=== PATIENT | male | born 1995 | race Caucasian/White ===

== ENCOUNTER 2018-05-15 10:11 | Emergency (ER) | payer SELFPAY ==
[2018-05-15 10:12] VITALS: BP 135/88; PULSE 107; RESP 17; TEMP 36.4; O2SAT 99; BMI 26.6
--- NOTE | 2018-05-15 10:22 | ED.DCSUM_ITS ---
- ER Visit Summary Date of Service: 05/15/18 Chief Complaint: Abdominal pain, nausea, vomiting History of Present Illness: The patient is a 22 M presents to the emergency department with abdominal pain nausea and vomiting. Patient symptoms began acutely at 330 this morning. He states he woke from sleep and had the urge to vomit. He states he vomited more than 10 times. There is been no blood in the emesis. He states that he has pain with vomiting, but no pain at rest. He denies any fevers or chills. He has no history of prior abdominal surgery. He has no history of inflammatory bowel disease. He denies any alcohol use. He denies any sick contacts. Physical Examination: Vital signs reviewed General: Well-nourished, well-developed Head: Normocephalic, atraumatic Eyes: Pupils equal and reactive, extraocular muscles intact Neck, supple, no lymphadenopathy Heart: Regular rate and rhythm Respiratory: No distress, clear bilaterally Abdomen: Soft, nontender, nondistended, no peritoneal signs Back: Nontender Extremities: Nontender, no edema, no cords Skin: Normal color no rash Neuro: Alert and oriented, no focal or lateralizing deficits Test Results: [] Emergency Department Course and Treatment: I cannot re-create any pain on the patient's examination. His abdomen is soft and nontender. He states that he did eat at a bar last night and then 6 hours later his vomiting started. IV was established. He was given fluids and antiemetics. He had marked improvement of symptoms. Lab work was obtained and was unremarkable. On reevaluation is resting comfortably. He is now tolerating oral liquids. I do feel that this is more likely an infectious gastroenteritis or even food poisoning. However, he is well-appearing, has a nontender abdomen, and is now tolerating p.o. I do feel that he is safe for outpatient therapy. The patient was counseled concerning symptoms and reasons to return. He will be discharged home. Treatment Plan: [] Disposition: Discharge Impression: 1. Nausea and vomiting This note was generated with [employer] software. It may contain incorrect words, spelling, and punctuation that were not noted in review of the chart prior to signing ED Disposition - Plan for ED Patient: Chief Complaint: Abd Pain Instructions: ED Nausea Vomiting Prescriptions: Ondansetron [Zofran Odt] 4 mg PO Q8H PRN PRN #10 tab PRN Reason: Nausea Referrals: NOT,DEFINED [NON-STAFF] -
[2018-05-15] MEDS: 0.9% Normal Saline 1,000 ML 1000 ML IV (10:35)
[2018-05-15] MEDS: Ondansetron 4 MG/2 ML Vial IV (10:36)
[2018-05-15] MEDS: Ketorolac 30 MG/ML Syringe IV (10:36)
[2018-05-15 10:54] LABS: ALB/GLOB Ratio 1.4 RATIO (0.9-2.4); AST(SGOT) 21 U/L (15-37); Alanine Aminotransfer ALT/SGPT 44 U/L (16-61); Albumin, Serum 4.9 g/dL (3.2-5.0); Alkaline Phosphatase 91 U/L (45-117); Anion Gap 8 (5-15); BUN 18 mg/dL (7-18); BUN/Creat Ratio 16.2 RATIO (10-20); Calcium,Total 9.7 mg/dL (8.5-10.1); Chloride 104 mmol/L (98-107); Creatinine, Serum 1.11 mg/dL (0.70-1.30); EST Glomerular Filtration Rate 89 mL/min (>60); Est Glom Filt Rate - Afr Amer 108 mL/min (>60); Estimated Creatinine Clearance 106.16 ml/min; Globulin 3.5 g/dL (2.2-4.2); Glucose 117 mg/dL (74-106); Lipase 136 U/L (73-393); Potassium 4.3 mmol/L (3.5-5.1); Protein, Total 8.4 g/dL (6.4-8.2); Sodium Level 138 mmol/L (136-145)
[2018-05-15 10:55] LABS: Absolute Lymphocyte Count 0.55 X10^3/ul (0.83-4.51); Absolute Neutrophil Count 10.6 X10^3/uL (2.0-7.7); Basophil# 0.01 X10^3/uL; Basophil% 0.1 % (0-1); Eosinophil# 0.02 X10^3/uL; Eosinophils% 0.2 % (0-5); Hematocrit 49.4 % (40-54); Hemoglobin 17.5 g/dl (13.0-16.5); Lymphocyte # 0.55 X10^3/ul (4.0); Lymphocyte % 4.5 % (19-41); Mean Corp Hgb Conc 35.4 g/gl (32-36); Mean Corpuscular Hgb 30.8 pg (27.0-32.0); Mean Platelet Vol. 11.3 fl (6.2-12.0); Monocyte% 8.2 % (0-10); Neutrophil % 86.7 % (47-70); Platelet Count 195 K/mm3 (150-450); RBC Distribution Width CV 12.3 % (11.6-14.6); RBC Distribution Width SD 39.5 fl (35.1-43.9); Red Blood Count 5.68 M/mm3 (4.6-6.2); White Blood Count 12.2 K/mm3 (4.4-11.0)
[2018-05-15 10:56] LABS: Differential Indicated SCAN CRITERIA MET; POSITIVE COUNT NO; POSITIVE DIFFERENTIAL YES; POSITIVE MORPHOLOGY NO
== END 2018-05-15 11:26 | disposition home or self-care (01) ==
LOC: ED 10:47
PROVIDERS: Emergency Provider Emergency Medicine
DX: R11.2 Nausea with vomiting, unspecified (principal); Z72.0 Tobacco use
CPT/HCPCS: 80053; 83690; 85025; 96361; 96374; 96375; 99283; J7030; A4216; J2405

== ENCOUNTER 2018-05-18 15:04 | Emergency (ER) | payer SELFPAY ==
[2018-05-18 15:05] VITALS: BP 121/73; PULSE 84; RESP 14; TEMP 36.9; O2SAT 97; BMI 28.7
--- NOTE | 2018-05-18 15:14 | CT_ITS ---
STUDY: CT ABDOMEN AND PELVIS WITH CONTRAST REASON FOR EXAM: Male, 22 years old. Epigastric pain nausea vomiting diarrhea RADIATION DOSAGE (If Supplied By Facility): CTDIvol = ( 15.57 ) mGy, DLP = ( 1068.20 ) mGycm TECHNIQUE: Transaxial images were obtained from the dome of the diaphragm to the symphysis pubis with oral contrast. 100ML ml of Isovue 300 contrast was administered. Sagittal and coronal images were reconstructed. Individualized dose optimization techniques were used for this CT. COMPARISON: None. FINDINGS: The visualized lung bases are unremarkable. The visualized portions of the heart are within normal limits. Normal liver. Normal gallbladder and extrahepatic biliary system. Normal spleen. Normal pancreas. Normal bilateral adrenal glands. Normal right kidney. Normal left kidney. Normal visualized stomach. Normal small intestine. Normal colon. The appendix is visualized and appears normal. Normal abdominal aorta. Normal inferior vena cava. Normal retroperitoneum. Normal urinary bladder. The prostate, seminal vesicles, and seminal vesicle angles appear within normal limits. There is a small umbilical hernia containing fat. Normal osseous structures. CT/Abdomen/Pelvis WITH Contrast IMPRESSION: Small fat-containing umbilical hernia. There is no evidence of free intra-abdominal or intrapelvic air, fluid, or inflammatory process. Electronically Signed: Jimmie Sprague MD at 17:27 EST , Service support ,
--- NOTE | 2018-05-18 15:19 | ED.VISSUMM ---
- ER Visit Summary Date of Service: 05/18/18 Chief Complaint: Abdominal pain History of Present Illness: The patient is a 22 M presenting with abdominal pain, nausea, vomiting. His symptoms started on 05/15. He was seen in the ED that day. He had blood work and was treated with fluids and medication. He felt improved and was discharged with Zofran. He states his symptoms have continued. He denies diarrhea. Denies blood in his emesis. He has had 2 episodes of vomiting today. He complains of epigastric pain. He does not believe this worsens with eating. He denies fever. Denies other complaints. Physical Examination: Vitals are stable. Patient is afebrile. Alert no acute distress. HEENT exam is unremarkable. Neck is supple. Lungs are clear and equal bilaterally. Heart is regular rate and rhythm. Abdomen is soft epigastric tenderness with no rebound or guarding Extremities are unremarkable. Skin is warm and dry. Remainder of exam is unremarkable. Emergency Department Course and Treatment: Patient is given IV fluids, Phenergan. CBC, chemistries unremarkable. Liver lipase are normal. CT abdomen pelvis shows small fat-containing umbilical hernia. There is no evidence of free intra-abdominal or intrapelvic air, fluid, or inflammatory process. On reevaluation, patient is resting comfortably. His abdomen is soft and nontender. He declines Phenergan prescription and will continue taking Zofran. He is advised to follow-up with primary care physician. Advised to return to ED for worsening complaints. Disposition: Discharge home Impression: Abdominal pain This note was generated with [employer] dictation software. It may contain incorrect words, spelling, and punctuation that were not noted in review of the chart prior to signing ED Disposition - Plan for ED Patient: Chief Complaint: Abd Pain Referrals: Care Physician,No Primary [Primary Care Provider] -
[2018-05-18] MEDS: proMETHazine 25 MG/ML Syringe 6.25 MG IV (15:25)
[2018-05-18] MEDS: 0.9% Normal Saline 1,000 ML 1000 ML IV (15:25)
[2018-05-18 15:40] LABS: Absolute Lymphocyte Count 0.96 X10^3/ul (0.83-4.51); Absolute Neutrophil Count 2.1 X10^3/uL (2.0-7.7); Basophil# 0.01 X10^3/uL; Basophil% 0.3 % (0-1); Eosinophil# 0.08 X10^3/uL; Eosinophils% 2.2 % (0-5); Hematocrit 47.6 % (40-54); Hemoglobin 16.4 g/dl (13.0-16.5); Lymphocyte # 0.96 X10^3/ul (4.0); Lymphocyte % 26.2 % (19-41); Mean Corp Hgb Conc 34.5 g/gl (32-36); Mean Corpuscular Hgb 30.1 pg (27.0-32.0); Mean Corpuscular Volume 87.5 fL (80-94); Mean Platelet Vol. 10.9 fl (6.2-12.0); Monocyte# 0.51 X10^3/uL; Monocyte% 13.9 % (0-10); Neutrophil # 2.09 X10^3/uL (2.7-7.7); Neutrophil % 57.1 % (47-70); Platelet Count 169 K/mm3 (150-450); RBC Distribution Width CV 12.1 % (11.6-14.6); RBC Distribution Width SD 38.2 fl (35.1-43.9); Red Blood Count 5.44 M/mm3 (4.6-6.2); White Blood Count 3.7 K/mm3 (4.4-11.0)
[2018-05-18 15:41] LABS: POSITIVE COUNT NO; POSITIVE DIFFERENTIAL NO; POSITIVE MORPHOLOGY NO
[2018-05-18 15:52] LABS: AST(SGOT) 37 U/L (15-37); Alanine Aminotransfer ALT/SGPT 51 U/L (16-61); Albumin, Serum 4.4 g/dL (3.2-5.0); Alkaline Phosphatase 74 U/L (45-117); Anion Gap 7 (5-15); BUN 13 mg/dL (7-18); BUN/Creat Ratio 12.9 RATIO (10-20); Calcium,Total 8.5 mg/dL (8.5-10.1); Chloride 104 mmol/L (98-107); Creatinine, Serum 1.01 mg/dL (0.70-1.30); EST Glomerular Filtration Rate 100 mL/min (>60); Est Glom Filt Rate - Afr Amer 121 mL/min (>60); Estimated Creatinine Clearance 116.67 ml/min; Globulin 3.1 g/dL (2.2-4.2); Glucose 80 mg/dL (74-106); Lipase 86 U/L (73-393); Potassium 4.3 mmol/L (3.5-5.1); Protein, Total 7.5 g/dL (6.4-8.2); Sodium Level 139 mmol/L (136-145)
[2018-05-18 17:04] VITALS: BP 119/64; PULSE 58; RESP 18; O2SAT 96
--- NOTE | 2018-05-18 18:24 | ED.DEP ---
ED Disposition - Plan for ED Patient: Chief Complaint: Abd Pain Instructions: ED Abdominal Pain Unkn Cause Referrals: Pk Carpenter MD [STAFF PHYSICIAN] -
[2018-05-18 18:32] VITALS: PULSE 59; RESP 18; O2SAT 100
== END 2018-05-18 18:33 | disposition home or self-care (01) ==
LOC: ED 15:45
PROVIDERS: Emergency Provider Emergency Medicine
DX: R10.13 Epigastric pain (principal); R11.2 Nausea with vomiting, unspecified; Z72.0 Tobacco use
CPT/HCPCS: 74177; 80048; 80076; 83690; 85025; 96361; 96374; 99283; J7030; Q9967; A4216

== ENCOUNTER 2019-06-24 10:47 | Emergency (ER) | payer OTHER, SELFPAY ==
[2019-06-24 10:48] VITALS: BP 143/91; PULSE 56; RESP 17; TEMP 36.7; O2SAT 100; BMI 32.8
--- NOTE | 2019-06-24 11:01 | ED.VIS.GEN ---
History of Present Illness Chief Complaint: Abd Pain Informant: Patient Onset: Yesterday Context: Gradual Onset Timing: Waxes and wanes Current Severity: Mild Maximum Severity: Moderate Narrative: Patient presents with complaint of abdominal pain. He points to the periumbilical epigastric region describing his area of pain. He states pain was mild last evening and worsened today. He thought he had some improvement after eating, but then pain worsened. He reports subjective fever and chills. He vomited x1. He denies diarrhea. Patient does report some intermittent reflux, but does not take any medication on a regular basis. He has never had any abdominal surgeries. Past Medical History - Allergies and Home Meds Allergies/Adverse Reactions: Allergies No Known Allergies Allergy (Verified 06/24/19 10:48) Primary Care Physician: Care Physician,No Primary [Primary Care Provider] - Past Medical History: - - Mild reflux Lives: Spouse/ Significant Other Smoking Status: Never smoker Review of Systems General: Reports: Chills, Fever, Subjective Eyes: Denies: Visual changes - bilaterally ENT: Denies: Bilateral ear pain Cardiovascular: Denies: Chest pain Respiratory: Denies: Dyspnea, Cough Gastrointestinal: Reports: Abdominal pain, Nausea, Vomiting. Denies: Diarrhea Genitourinary: Denies: Dysuria Musculoskeletal: Denies: Swelling, Extremity Pain Skin: Denies: Rash Neurological: Denies: Headache Hematologic: Denies: Easy bruising, Easy bleeding Allergy: Denies: Uticaria Physical Exam Vital Signs/Narrative: Vital Signs Temp Pulse Resp BP Pulse Ox 06/24/19 10:48 98.1 F 56 L 17 143/91 H 100 Inital Vital Signs reviewed: Yes General: Well nourished, Well developed Head: Normocephalic ENT: Moist mucous membranes Neck: Supple Cardiovascular: Regular rate, Regular rhythm Respiratory: No distress, CTA bilaterally Abdomen: Soft, Normal bowel sounds, Tender - Mild periumbilical tenderness. No palpable masses or hernias.. Negative for: Guarding, Rebound tenderness Back: Nontender Extremities: Nontender Skin: Normal color, No rash Neurological: Alert, Oriented x3 Psychological: Normal affect Diagnostic/Tx/Re-eval Laboratory Results 06/24/19 06/24/19 06/24/19 11:26 11:35 11:35 WBC 5.3 RBC 5.25 Hgb 15.4 Hct 45.4 MCV 86.5 MCH 29.3 MCHC 33.9 RDW Std Deviation 37.0 RDW Coeff of Mile 11.7 Plt Count 170 MPV 10.9 Immature Gran % (Auto) 0.600 Neut % (Auto) 56.2 Lymph % (Auto) 26.4 [place] % (Auto) 9.7 Eos % (Auto) 6.3 H Baso % (Auto) 0.8 Absolute Neuts (auto) 3.0 Absolute Lymphs (auto) 1.39 Nucleated RBC % 0 Sodium 139 Potassium 4.3 Chloride 109 H Carbon Dioxide 28.0 Anion Gap 2 L BUN 15 Creatinine 0.94 Estim Creat Clear Calc 124.31 Est GFR (MDRD) Af Amer 129 Est GFR (MDRD) Non-Af 107 BUN/Creatinine Ratio 15.9 Glucose 97 Calcium 9.3 Total Bilirubin 0.30 Direct Bilirubin 0.13 AST 26 ALT 87 H Alkaline Phosphatase 80 Total Protein 7.3 Albumin 3.9 Globulin 3.4 Lipase 78 Urine Color Yellow Urine Clarity Sl. Cloudy Urine pH 6.5 Ur Specific [place] 1.015 Urine Protein Negative Urine Glucose (UA) Normal Urine Ketones Negative Urine Occult Blood Negative Urine Nitrite Negative Urine Bilirubin Negative Urine Urobilinogen Normal Ur Leukocyte Esterase Negative Urine RBC 0 SEEN Urine WBC 0 SEEN Ur Squamous Epith Cells 0-5 SEEN Urine Bacteria 0 SEEN Urine Mucus 0 SEEN - Medical Decision Making Patient was given Toradol and Zofran along with IV fluids. On repeat evaluation he does feel improved. He is reassured with normal labs. I discussed with him I did not want a repeat a CAT scan if we can help it as he just had one in May. He voices understanding and agreement. ED Disposition - Plan for ED Patient: Disposition: Home or Assisted Living Diagnosis: Abdominal pain Instructions: ABDOMINAL PAIN, Unkown Cause, (Male) Prescriptions: Omeprazole [Prilosec] 20 mg PO DAILY #30 cap Transmission Status: Pending to [facility] Ondansetron [Zofran Odt] 4 mg PO Q8H PRN PRN #10 tab PRN Reason: Nausea Transmission Status: Pending to [facility] Referrals: Nathaly Be DO [STAFF PHYSICIAN] - As Needed
[2019-06-24] MEDS: Ketorolac 30 MG/ML Syringe IV (11:32)
[2019-06-24] MEDS: 0.9% Normal Saline 1,000 ML 150 ML IV (11:32)
[2019-06-24] MEDS: Ondansetron 4 MG/2 ML Vial IV (11:33)
[2019-06-24 11:41] LABS: Bacteria 0 SEEN /hpf (None Seen); Mucous, Urine 0 SEEN /hpf (<or=2+); Red Blood Cells-Urine 0 SEEN /hpf (0-5); White Blood Cells 0 SEEN /hpf (0-5)
[2019-06-24 11:47] LABS: Absolute Lymphocyte Count 1.39 X10^3/uL (0.83-4.51); Basophil# 0.04 X10^3/uL; Basophil% 0.8 % (0-1); Eosinophil# 0.33 X10^3/uL; Eosinophils% 6.3 % (0-5); Hematocrit 45.4 % (40-54); Hemoglobin 15.4 g/dL (13.0-16.5); Lymphocyte # 1.39 X10^3/ul (4.0); Lymphocyte % 26.4 % (19-41); Mean Corp Hgb Conc 33.9 g/dL (32-36); Mean Corpuscular Hgb 29.3 pg (27.0-32.0); Mean Corpuscular Volume 86.5 fL (80-94); Mean Platelet Vol. 10.9 fl (6.2-12.0); Monocyte# 0.51 X10^3/uL; Monocyte% 9.7 % (0-10); NRBC Flagged by Analyzer 0 % (0-5); Neutrophil # 2.96 X10^3/uL (2.7-7.7); Neutrophil % 56.2 % (47-70); Platelet Count 170 K/mm3 (150-450); RBC Distribution Width CV 11.7 % (11.6-14.6); Red Blood Count 5.25 M/mm3 (4.6-6.2); White Blood Count 5.3 K/mm3 (4.4-11.0)
[2019-06-24 11:50] LABS: Color, Urine Yellow (Yellow); Glucose, Dipstick Normal (Normal); Ketone-Dipstick Negative (Negative); Leukocyte Esterase-Dipstick Negative /ul (Negative); Nitrite-Dipstick Negative (Negative); Occult Blood-Urine Negative /ul (Negative); Protein-Dipstick Negative (Negative); Specific Gravity, Urine 1.015 (1.002-1.030); Urine Bilirubin Dipstick Negative (Negative); Urine Clarity Sl. Cloudy (Clear); Urine Urobilinogen Normal (Normal); Urine pH 6.5 (5.0 - 8.0)
[2019-06-24 11:56] LABS: Squamous Epithelial Cells - UA 0-5 SEEN /hpf (0-5)
[2019-06-24 12:04] LABS: AST(SGOT) 26 U/L (15-37); Alanine Aminotransfer ALT/SGPT 87 U/L (16-61); Albumin, Serum 3.9 g/dL (3.2-5.0); Alkaline Phosphatase 80 U/L (45-117); Anion Gap 2 (5-15); BUN 15 mg/dL (7-18); BUN/Creat Ratio 15.9 RATIO (10-20); Bilirubin, Direct 0.13 mg/dL (0.00-0.30); Calcium,Total 9.3 mg/dL (8.5-10.1); Chloride 109 mmol/L (98-107); Creatinine, Serum 0.94 mg/dL (0.70-1.30); EST Glomerular Filtration Rate 107 mL/min (>60); Est Glom Filt Rate - Afr Amer 129 mL/min (>60); Estimated Creatinine Clearance 124.31 ml/min; Globulin 3.4 g/dL (2.2-4.2); Glucose 97 mg/dL (74-106); Lipase 78 U/L (73-393); Potassium 4.3 mmol/L (3.5-5.1); Protein, Total 7.3 g/dL (6.4-8.2); Sodium Level 139 mmol/L (136-145)
[2019-06-24 12:58] VITALS: BP 116/74; PULSE 71; RESP 16; O2SAT 99
--- NOTE | 2019-06-24 12:59 | ED.RN ---
REVIEWED D/C INSTRUCTIONS, FOLLOW UP CARE, AND S/S THAT WOULD WARRANT A RETURN TO THE ED WITH PT. PT VERBALIZED AN UNDERSTANDING AND DENIES FURTHER QUESTIONS FOR THIS RN. PT SKIN P/W/D, RESP EVEN AND UNLABORED, PT A&O X 3, NO DISTRESS NOTED. PT AMBULATED OUT OF ED, GAIT STEADY.
== END 2019-06-24 13:00 | disposition home or self-care (01) ==
PROVIDERS: Emergency Provider Emergency Medicine
DX: R10.33 Periumbilical pain (principal)
CPT/HCPCS: 80048; 80076; 81001; 83690; 85025; 96361; 96374; 96375; 99283; J7030; A4216; J2405

== ENCOUNTER 2021-01-25 16:56 | Emergency (ER) | payer OTHER, SELFPAY ==
[2021-01-25 16:57] VITALS: BP 141/97; PULSE 91; RESP 18; TEMP 36.3; O2SAT 99; BMI 34.4
[2021-01-25 18:56] VITALS: RESP 16
[2021-01-25] MEDS: Ibuprofen 400 MG Tablet 800 MG PO (18:58)
[2021-01-25] MEDS: HYDROcodone Bitartrate/Apap 5/325 Tablet PO (18:58)
--- NOTE | 2021-01-25 19:10 | RAD_ITS ---
STUDY: X-RAY - CERVICAL SPINE REASON FOR EXAM: Male, 25 years old. Pain C4, 5 and 6 TECHNIQUE: 4 view(s) of the cervical spine were obtained. COMPARISON: None FINDINGS: Normal anterior atlantoaxial articulation. Normal odontoid process. Normal cervical lordosis. Normal vertebral bodies and endplates. Normal disc space heights. Normal visualized intervertebral neuroforamina. The soft tissue structures are unremarkable. RAD/Cerv Spine 2 or 3 Views IMPRESSION: Normal x-ray examination of the visualized cervical spine. Electronically Signed: Pascual Louise MD at 20:05 EDT Tel , Service support ,
--- NOTE | 2021-01-25 19:28 | EX.ED.GENINJ ---
HPI History of Present Illness Chief Complaint: Other, Pain/Inj Detail of Chief Complaint: Neck pain Informant: patient Onset/Context/Timing Onset: Hours Location: Posterior neck Current Severity: Mild Maximum Severity: Severe Worsened by: Movement Relieved by: Nothing Associated Symptoms Associated Symptoms: Negative for Parasthesias, Weakness, Loss of function, Inability to ambulate, Loss of consciousness and Amnesia Narrative Narrative: Patient is a 25-year-old male who was hanging drywall. States he was using his head to hold drywall up. There is no history of direct trauma. He complains of pain in his neck. Any type of movement causes him pain. He denies paresthesia, anesthesia motor weakness. He has no other complaints. Tetanus Immunization: 5-10 years Prior similar symptoms: No Recent Illness/Hospitalization: No PFSH PFSH no medical history Home Medications omeprazole 20 mg PO DAILY #30 cap 06/24/19 [Rx Last Taken Unknown] ondansetron 4 mg PO Q8H PRN PRN #10 tab 06/24/19 [Rx Last Taken Unknown] naproxen 500 mg PO BID #14 tab 01/25/21 [Rx Last Taken Unknown] Allergy/AdvReac Type Severity Reaction Status Date / Time No Known Allergies Allergy Verified 06/24/19 10:48 no surgical history Social History (Updated 01/25/21 @ 19:[address] Todd Shaikh MD) household members: significant other Smoking Status: Current every day smoker tobacco type: cigarettes alcohol intake: current alcohol intake frequency: other substance use type: does not use ROS ROS ED Constitutional Constitutional ED: Denies chills, fever(s), subjective or sweats Eyes Eyes: Denies blurry vision or change in vision ENT ENT ED: Denies ear pain, rhinorrhea or sore throat Cardiovascular Cardiovascular: Denies chest pain, palpitations or racing heartbeat Respiratory/Chest Respiratory/Chest: Denies cough, dyspnea or dyspnea on exertion Gastrointestinal Gastrointestinal: Denies nausea or vomiting Integumentary Denies rash Neurologic Neurologic: Denies headache(s), paresthesias or weakness Hematologic/Lymphatic Hematologic/Lymphatic: Denies easy bleeding or easy bruising EXAM Physical Exam Const Vital Signs: 01/25/21 16:57 01/25/21 18:56 Temperature 97.4 F L Temperature Source Temporal Pulse Rate 91 Respiratory Rate 18 16 Blood Pressure 141/97 H Blood Pressure Mean 111 Pulse Ox 99 Oxygen Delivery Method Room Air Positive well nourished and well developed General Appearance ED: well developed and other Patient appears uncomfortable. HEENT Reports TM's clear HEENT Narrative: Tenderness over C4, 5 and 6 cervical spinous process atraumatic and tenderness Nose: septum abnormal Tympanic Membrane ED: Yes TM's clear Eyes PERRL and EOMs intact bilaterally Neck No full ROM General: tenderness Chest Wall inspection of chest normal Resp normal respiratory effort and clear to auscultation bilaterally Cardio regular rhythm, S1 normal heart sound, S2 normal heart sound and no murmurs Rate: regular rate Extremity normal to inspection and full ROM Neuro oriented x3, CN's II-XII intact bilaterally, moves all extremities and no sensory deficits noted Sensorium / Orientation: alert Motor Exam: strength 5/5 throughout Deep Tendon Reflexes: Rt Triceps (C7): 2+, Lt Triceps (C7): 2+, Rt Biceps (C5, C6): 2+, Lt Biceps (C5, C6): 2+, Rt Brachioradialis (C6): 2+, Lt Brachioradialis (C6): 2+, Rt Patellar (L4): 2+, Lt Patellar (L4): 2+, Rt Ankle (S1): 2+ and Lt Ankle (S1): 2+ Deep Tendon Reflexes Back: Rt Patellar (L4): 2+, Lt Patellar (L4): 2+, Rt Ankle (S1): 2+ and Lt Ankle (S1): 2+ Psych mental status grossly normal and thought process normal Skin no rashes or lesions noted, no wounds and skin turgor normal MDM MDM MDM Narrative Medical decision making narrative: X-ray of C-spine was obtained to assess for degenerative changes asymmetry of the joint spaces etc. Three-view x-ray of the C-spine was interpreted by me as negative. Radiography Diagnostic Testin view x-ray of the C-spine interpreted by me as negative. There is no soft tissue swelling. There is no malalignment. There is no degenerative changes noted. Discharge Plan Triage Chief Complaint: Other, Pain/Inj ED Provider: Todd Shaikh Dx/Rx/DC Orders Clinical Impression: Cervical myofascial strain Prescriptions: New naproxen 500 MG tablet 500 mg PO BID Qty: 14 RF: 0 No Action ondansetron 4 MG tablet 4 mg PO Q8H PRN PRN (Reason: Nausea) Qty: 10 RF: 0 omeprazole 20 MG capsule 20 mg PO DAILY Qty: 30 RF: 0 Primary Care Provider: Care Physician,No Primary Referrals: Fast,Rosalind, DO [NON-STAFF] - 1 Week if not improving Care Physician,No Primary [Primary Care Provider] - Activity Restrictions/Additional Instructions: 1. Apply ice 6-8 times a day for the next 3 to 5 days 2. Avoid activity that causes you pain Disposition Disposition: Home, Self Care
== END 2021-01-25 19:44 | disposition home or self-care (01) ==
PROVIDERS: Emergency Provider Emergency Medicine
DX: S16.1XXA Strain of muscle, fascia and tendon at neck level, initial encounter (principal); X58.XXXA Exposure to other specified factors, initial encounter; Y93.89 Activity, other specified; Y92.9 Unspecified place or not applicable; Y99.9 Unspecified external cause status; F17.210 Nicotine dependence, cigarettes, uncomplicated
CPT/HCPCS: 72040; 99282

== ENCOUNTER 2024-07-10 12:28 | Emergency (ER) | payer OTHER, SELFPAY ==
[2024-07-10 12:30] VITALS: BP 127/74; PULSE 57; RESP 18; TEMP 36.8; O2SAT 100; BMI 31.6
--- NOTE | 2024-07-10 12:45 | EDS_ITS ---
HPI <ALEAH Guajardo - Last Filed: 07/10/24 13:04> History of Present Illness Chief Complaint: Dizziness Narrative Narrative: 28-year-old male states over the last 3 days he has had vertigo with a sensation that the world is moving. It started while he was stretching before going to the gym. He feels a sensation of being slightly dizzy all the time but when he moves his head or walks he has a worsening movement sensation. He also has intermittent headaches that change location. He has no fever, chills, or neck pain. No visual or speech changes and no focal motor or sensory changes. He had similar symptoms several years ago and [facility] but he no longer has it. He has no known health problems. PFSH <ALEAH Guajardo - Last Filed: 07/10/24 13:04> [facility] Medical History Vertigo Smoker Home Medications ?Medication ?Instructions ?Recorded ?Last Taken ?Type omeprazole 20 mg capsule,delayed 20 mg PO DAILY #30 ca ps 06/24/19 Unknown Rx release meclizine 25 mg tablet 25 mg PO 4X/DAY PRN PRN Dizz iness 07/10/24 Unknown Rx #20 tabs metoclopramide HCl 10 mg tablet 10 mg PO Q6H PRN heada gini #12 tabs 07/10/24 Unknown Rx (Reglan) Allergy/AdvReac Type Severity Reaction Status Date / Time No Known Allergies Allergy Verified 07/10/24 12:30 Social History (Updated 07/10/24 @ 13:00 by Marci Delgadillo) household members: significant other current occupational status: employed Smoking Status: Current every day smoker tobacco type: cigarettes alcohol intake: current alcohol intake frequency: other substance use type: does not use ROS <ALEAH Guajardo - Last Filed: 07/10/24 13:04> ROS ED ROS Narrative Constitutional: Negative for fever, chills, malaise. Eyes: Negative for visual change. CVS: Negative for palpitations, chest pain, syncope. Respiratory: Negative for shortness of breath, cough, orthopnea. GI: Negative for nausea, vomiting. EXAM <ALEAH Guajardo - Last Filed: 07/10/24 13:04> Physical Exam Narrative Exam Narrative: CONST: Patient sitting in no acute distress. EYES: Normal inspection. PERRL, EOMI, 2 beats of rightward horizontal nystagmus. ENT: Normal inspection, moist mucous membranes. Normal TMs bilaterally. NECK: Normal inspection. No meningismus RESP: No respiratory distress, CTAB. CVS: Regular rate and rhythm, no murmur, no gallop. SKIN: Color normal, no rash, warm, dry, intact. EXTREMITIES: Normal appearance, no pedal edema. NEURO: Alert and answering questions appropriately. Face symmetric, cranial nerves II through XII grossly intact, 5/5 upper and lower extremity strength, normal [id number] and [id number], no drift, normal gait. PSYCH: Normal affect. Const Vital Signs: 07/10/24 12:30 Temperature 98.2 F Temperature Source Oral Pulse Rate 57 L Respiratory Rate 18 Blood Pressure 127/74 H Blood Pressure Mean 91 Pulse Ox 100 Oxygen Delivery Method Room Air <Dr. Denis Vargas MD - Last Filed: 07/10/24 13:24> Physical Exam Const Vital Signs: 07/10/24 12:30 Temperature 98.2 F Temperature Source Oral Pulse Rate 57 L Respiratory Rate 18 Blood Pressure 127/74 H Blood Pressure Mean 91 Pulse Ox 100 Oxygen Delivery Method Room Air MDM <ALEAH Guajardo - Last Filed: 07/10/24 13:04> [facility] Narrative Medical decision making narrative: 28-year-old male presents with intermittent headache and vertigo symptoms over the last 3 days. He describes a constant low-grade dizziness that worsens with movement or walking. He is awake alert in no distress. Vital signs stable. He has a few beats of rightward horizontal nystagmus. His tympanic membranes are normal. He has a nonfocal neurological exam without incoordination or ataxic gait. I suspect peripheral vertigo. Differential includes but not limited to BPPV, vestibular migraine, labyrinthitis, vestibular neuritis. He was treated with IM Toradol and meclizine. I do not think he needs CT head imaging as he had similar presentation with headache/vertigo several years ago and today has a normal neurological exam. I prescribed meclizine and Reglan as needed for vertigo and headaches, respectively. I discussed return precautions and he was discharged in stable condition. Lab Data Attestation: I reviewed the patient's lab results. <Dr. Denis Vargas MD - Last Filed: 07/10/24 13:24> [facility] Treatment and Re-Evaluation Comments:: I have personally performed a face to face assessment of the patient and have reviewed the [place] Note. I performed a substantive portion of the visit including all aspects of the following. My rbody findings include: History is vertiginous symptoms gradual and persistent for 3 days worse with position changes and head movements. Some headache. A feeling of whooshing in his head but not his ear. Chronic tinnitus no different. No earache. No URI symptoms. Not off balance. Exam is TMs and EACs normal. Normal neurologic exam, no ataxia or dysmetria. Normal speech. Medical Decison Making consistent with peripheral vertigo, were considering the possibilities as listed above. He was given a dose of Toradol here for the possibility of vestibular migraine prescribed Reglan for that in addition to meclizine and advised to follow-up if not self-limiting within the next few da ys. Other additions or changes: [None] Discharge Plan Triage Chief Complaint: Dizziness ED Midlevel Provider: Rena Mesa ED Provider: Denis Vargas Dx/Rx/DC Orders Clinical Impression: Peripheral vertigo, Headache Instructions: ED BPV Vertigo Prescriptions: New meclizine 25 mg tablet 25 mg PO 4X/DAY PRN PRN (Reason: Dizziness) Qty: 20 0RF metoclopramide HCl [Reglan] 10 mg tablet 10 mg PO Q6H PRN (Reason: headache) Qty: 12 0RF No Action omeprazole 20 MG capsule 20 mg PO DAILY Qty: 30 0RF Primary Care Provider: Care Physician,No Primary Referrals: Care Physician,No Primary [Primary Care Provider] - Activity Restrictions/Additional Instructions: I prescribed meclizine as needed for vertigo and Reglan as needed for headache. You can also take [id number] Tylenol and ibuprofen. Follow-up with your primary care doctor. Print Language: [place] Disposition Disposition: Home, Self Care
[2024-07-10] MEDS: Meclizine HCl 25 MG Tablet PO (12:55)
[2024-07-10] MEDS: Ketorolac 30 MG/ML Syringe IM (12:55)
[2024-07-10 13:28] VITALS: BP 126/74; PULSE 60; RESP 16; TEMP 36.6; O2SAT 100
== END 2024-07-10 13:28 | disposition home or self-care (01) ==
LOC: ED 12:58
PROVIDERS: Emergency Provider Emergency Medicine; Visit Provider Emergency Medicine
DX: H81.399 Other peripheral vertigo, unspecified ear (principal); R51.9 Headache, unspecified; F17.210 Nicotine dependence, cigarettes, uncomplicated; Z79.899 Other long term (current) drug therapy
CPT/HCPCS: 96372; 99282